=== PATIENT | female | born 1945 | race Caucasian/White ===

== ENCOUNTER 2018-05-12 11:35 | Emergency (ER) | payer MEDICARE ==
--- NOTE | 2018-05-12 12:33 | RAD ---
STANDARD AP PELVIS: HISTORY: Hip pain. COMPARISON: None. FINDINGS: Large volume bilateral acetabular osteophyte formation. Bilateral superior and inferior pubic rami f ractures appear relatively acute. Femoral heads and necks are intact. Abnormal appearance of the left S1 sacral strut. IMPRESSION: 1. Bilateral superior and inferior pubic rami fractures. 2. No acute fracture or malalignment of the hips. 3. Abnormal appearance of the left S1 sacral strut may reflect a fracture. POS: [facility]
--- NOTE | 2018-05-12 12:34 | RAD ---
LEFT HIP 2 VIEWS: HISTORY: Hip pain. COMPARISON: None. FINDINGS: There are fractures of the bilateral superior and inferior pubic rami. The left femoral head and nec k are intact. There is large volume left acetabular osteophyte formation. IMPRESSION: Bilateral superior and inferior pubic rami fractures. Left femoral head and neck are intact. POS: [facility]
[2018-05-12 13:18] LABS: #Basophils 0.1 thou/uL (0.0-0.2); #Eosinphils 0.1 thou/uL (0.0-0.7); #Lymphocytes 1.5 thou/uL (1.20-3.40); #Monocytes 0.6 thou/uL (0.11-0.59); #Neutrophils 9.1 thou/uL (1.40-6.50); %Basophils 0.7 % (0.0-1.0); %Eosinophils 0.9 % (0.0-10.0); %Lymphocytes 12.9 % (21.0-51.0); %Monocytes 5.4 % (0.0-10.0); %Neutrophils 80.2 % (42.0-75.0); Hemoglobin 12.9 g/dL (12.0-16.0); Mean Corpuscular HGB CONC 33.9 g/dL (32.0-36.0); Mean Corpuscular Hemoglobin 34.5 pg (27.0-31.0); Mean Platelet Volume 7.5 fL (7.4-10.4); Platelet Count 250 thou/uL (130-400); RBC Distribution Width 11.3 % (11.5-14.5); Red Blood Cell (RBC) Count 3.75 mill/uL (4.20-5.40); White Blood Cell (WBC) Count 11.4 thou/uL (4.8-10.8)
--- NOTE | 2018-05-12 13:24 | CT ---
CT BRAIN WITHOUT CONTRAST: Date: 05/12/18 HISTORY: Fall. Pain. Trauma. COMPARISON: None. FINDINGS: There are multiple small calcifications along the subarachnoid space, right frontal and temporal lobe s, may be vascular in nature. No acute hemorrhage. No infarction. No midline shift or mass effect. Calvarium is intact. High densit y fluid within the right maxilla with likely a fracture of the right orbital floor. Mild atrophy. IMPRESSION: Likely right orbital floor fracture. No acute post-traumatic intracranial sequelae. POS: [facility]
--- NOTE | 2018-05-12 13:32 | CT ---
CT FACE WITHOUT CONTRAST: Date: 05/12/18 HISTORY: Fall. COMPARISON: None. FINDINGS: There is a right orbital floor fracture which measures 1.9 cm in AP dimension and approximately 1.7 c m in transverse dimension. There is inferior displacement of the fat through this defect. There is al so downward displacement of the right rectus muscle, which has an oblong contour. The medial orbital oliva, lateral orbital oliva, and orbital roofs are intact. No retrobulbar hematoma. Right periorbital soft tissue contusion. The visualized calvarium is intact. The nasal bones are intact. Osseous nasal septum is intact. Normal location of the temporomandibular joints. No mandibular fracture. IMPRESSION: Large right orbital floor fracture containing fat, as well as abnormal morphology of the inferior rec tus muscle, which may be tethered down due to fat herniation. Ophthalmologic consultation recommended . POS: [facility]
[2018-05-12 13:42] LABS: ALT (SGPT) 40 U/L (8-55); AST (SGOT) 50 U/L (5-34); Alkaline Phosphatase 134 U/L (40-150); Anion Gap 14 mmol/L (10-20); BUN (Urea Nitrogen) 16 mg/dL (9.8-20.1); Bilirubin, Total 1.1 mg/dL (0.2-1.2); Calc. Creatinine Clearance 0 mL/min (70-130); Calcium 9.6 mg/dL (7.8-10.44); Carbon Dioxide 23 mmol/L (23-31); Chloride 101 mmol/L (98-107); Estimated GFR-MDRD 68; Globulin 3.2 g/dL (2.4-3.5); Glucose 104 mg/dL (83-110); Potassium 4.1 mmol/L (3.5-5.1); Protein, Total 7.2 g/dL (6.0-8.3); Sodium 134 mmol/L (136-145)
[2018-05-12] MEDS ORDERED: Morphine 4 MG/ML VIAL ONE (14:54)
[2018-05-12] MEDS ORDERED: Ondansetron PF 4 MG/2 ML Vial ONE (14:54)
[2018-05-12 15:20] LABS: Bilirubin Negative (Negative); Blood, Urine Negative (Negative); Clarity CLOUDY (Clear); Glucose, Urine (Dipstick) Negative (Negative); Leukocyte Negative (Negative); Nitrite Negative (Negative); Protein, Urine (Dipstick) Negative (Neg-Trace); Specific Gravity, Urine 1.013 (1.002-1.036); Urobilinogen 0.2 mg/dL (0.2-1.0)
[2018-05-12 15:30] LABS: Amphetamine Not Detected (NotDetected); Barbiturates Screen Not Detected (NotDetected); Benzodiazepine Screen Not Detected (NotDetected); Cocaine Metabolite Screen Not Detected (NotDetected); Medtox Control Line Valid? VALID (VALID); Medtox Reader # READER 4; Methadone Not Detected (NotDetected); Methamphetamine Not Detected (NotDetected); Opiate Screen Detected (NotDetected); Oxycodone Screen Not Detected (NotDetected); Phencyclidine (PCP) Not Detected (NotDetected); THC/Cannabinoid Screen Not Detected (NotDetected); Tricyclic Screen Not Detected (NotDetected)
== END 2018-05-12 17:17 ==
LOC: ERS 11:35
DX: S02.31XA Fracture of orbital floor, right side, initial encounter for closed fracture (principal); S32.592A Other specified fracture of left pubis, initial encounter for closed fracture; S32.591A Other specified fracture of right pubis, initial encounter for closed fracture; S02.91XA Unspecified fracture of skull, initial encounter for closed fracture; F17.210 Nicotine dependence, cigarettes, uncomplicated; Z79.899 Other long term (current) drug therapy; F10.10 Alcohol abuse, uncomplicated; W19.XXXA Unspecified fall, initial encounter
CPT/HCPCS: 36415; 51701; 70450; 70486; 72170; 80053; 80306; 81003; 83605; 84484; 85025; 93005; 96361; 96374; 96375; A4353; J2270; J2405